=== PATIENT | female | born 1930 | race Caucasian/White ===

== ENCOUNTER → 2016-05-26 | Outpatient (CLI) | payer MEDICARE, OTHER ==
[2016-05-26 11:31] LABS: BILIRUBIN,URINE Negative (Negative); COLOR,URINE Yellow; GLUCOSE, URINE (UA) Negative (Negative); LEUKOCYTE ESTERASE ,URINE Trace (Negative); PH,URINE 5.5 (5.0 - 8.0); UROBILINOGEN,URINE 0.2 mg/dL (0.2-1.0)
[2016-05-26 11:32] LABS: BASOPHILS % (AUTO) 0 % (0-2); EOSINOPHILS # (AUTO) 0.2 10^3uL; EOSINOPHILS % (AUTO) 2 % (0-4); LYMPHOCYTES # (AUTO) 3.5 X10^3; MEAN CORPUSCULAR HEMOGLOBIN 30.7 PG (26.0-34.0); MEAN CORPUSCULAR HGB CONC 34.3 g/dL (31.0-37.0); MEAN CORPUSCULAR VOLUME 90 FL (80-100); MEAN PLATELET VOLUME 10.5 FL (6.0-9.5); MONOCYTES # (AUTO) 0.8 X10^3; MONOCYTES % (AUTO) 9 % (3-11); NEUTROPHILS # (AUTO) 5.1 X10^3; NEUTROPHILS % (AUTO) 53 % (51-67); PLATELET COUNT 218 10^3uL (150-450); WHITE BLOOD COUNT 9.64 10^3uL (4.0-11.0)
[2016-05-26 11:34] LABS: CLARITY,URINE Slightly Cloudy
[2016-05-26 11:39] LABS: URINE CENTRIFUGED VOLUME 12 mL
[2016-05-26 11:40] LABS: RBC,URINE 0-2 /HPF
[2016-05-26 11:58] LABS: ALBUMIN 4.2 g/dL (3.4-5.0); ANION GAP 15.1 MEQ/L (3-15); CALCULATED IONIZED CALCIUM 4.5 mg/dL (3.8-4.6); TOTAL PROTEIN 7.3 g/dL (6.4-8.5)
[2016-05-26 18:42] LABS: GGT 12 U/L (3-36)
[2016-05-26 19:06] LABS: VITAMIN B 12 295 pg/mL (213-816)
== END ==
LOC: LAB 11:16
PROVIDERS: ATTEND Family Medicine
DX: I49.8 Other specified cardiac arrhythmias (principal); J20.2 Acute bronchitis due to streptococcus; R79.89 Other specified abnormal findings of blood chemistry; E78.2 Mixed hyperlipidemia; D50.8 Other iron deficiency anemias; N39.0 Urinary tract infection, site not specified; G72.0 Drug-induced myopathy; K71.2 Toxic liver disease with acute hepatitis; E13.65 Other specified diabetes mellitus with hyperglycemia; E03.4 Atrophy of thyroid (acquired)
CPT/HCPCS: 36415; 71020; 80053; 80061; 81003; 81015; 82550; 82607; 82977; 83036; 84436; 84443; 85025; 87088; 93005